=== PATIENT | male | born 1985 | race American Indian/Alaskan Native ===

== ENCOUNTER 2019-03-18 16:58 | Emergency (ER) | payer OTHER, BC ==
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
[2019-03-18] MEDS ORDERED: IBUPROFEN PO ONE (21:00)
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
[2019-03-18 22:49] VITALS: BP 150/80
== END 2019-03-18 22:48 | disposition home or self-care (01) ==
LOC: ED 16:58
DX: S16.1XXA Strain of muscle, fascia and tendon at neck level, initial encounter (principal); S50.02XA Contusion of left elbow, initial encounter; F17.200 Nicotine dependence, unspecified, uncomplicated; F12.10 Cannabis abuse, uncomplicated; Z79.899 Other long term (current) drug therapy; X58.XXXA Exposure to other specified factors, initial encounter; Y93.89 Activity, other specified; Y92.89 Other specified places as the place of occurrence of the external cause; Y99.8 Other external cause status